=== PATIENT | female | born 1970 | race Two or more races ===

== ENCOUNTER 2021-06-22 15:37 | Emergency (ER) | payer OTHER ==
[~2021-06-22] VITALS: Ht 162.6 cm; Wt 70.3 kg
[2021-06-22] MEDS ORDERED: GLUMETZA500 MG PO (15:56)
[2021-06-22] MEDS ORDERED: LEVOXYL100 MCG PO (15:56)
[2021-06-22] MEDS ORDERED: OMEGA 3 1,0001 EACH PO (15:57)
[2021-06-22] MEDS ORDERED: ATORVASTATIN CA10 MG PO (15:57)
== END 2021-06-22 19:27 | disposition home or self-care (01) ==
LOC: ER 15:37
DX: U07.1 COVID-19 (principal); J40 Bronchitis, not specified as acute or chronic; Z88.6 Allergy status to analgesic agent

== ENCOUNTER 2021-06-27 09:45 | Outpatient (CLI) | payer OTHER ==
[~2021-06-27 09:45] MED LIST: ATORVASTATIN CA10 MG PO; GLUMETZA500 MG PO; LEVOXYL100 MCG PO; OMEGA 3 1,0001 EACH PO
== END 2021-06-27 10:45 | disposition home or self-care (01) ==
LOC: ASH CLINIC 09:45
PROVIDERS: ATTEND Emergency Medicine
DX: U07.1 COVID-19 (principal)